=== PATIENT | female | born 1955 | race Caucasian/White ===

== ENCOUNTER → 2019-05-05 | Outpatient (CLI) | payer OTHER ==
[2019-05-05 11:16] LABS: ANION GAP 10 mmol/L (7-16); BUN 23 mg/dL (7-18); CALCIUM 9.1 mg/dL (8.5-10.1); CHLORIDE 101 mmol/L (98-107); CHOLESTEROL 227 mg/dL (<200); CO2 30 mmol/L (21-32); GLUCOSE 124 mg/dL (70-99); HDL CHOLESTEROL 45 mg/dL (>40); LDL CHOLESTEROL 125 mg/dL (<100); POTASSIUM 3.9 mmol/L (3.5-5.1); SERUM ASSESSMENT Clear; SODIUM 141 mmol/L (136-145); TRIGLYCERIDE 289 mg/dL (<150); VLDL 58 mg/dL (<40)
--- NOTE | 2019-05-05 14:58 | EKG ---
[place] [address] ELECTROCARDIOGRAM REPORT Name: DEBBIE ROMERO Room: [facility].#: [id number] Admission: 05/05/19 Attend Phys: Takedria. NICHOLS-LUIS Mckeon Discharge: Date of : 57 Report #: [id number] THIS REPORT FOR: //name// [facility] Test Date: 2019-05-05 Test Time: 11:09:53 Pat Name: DEBBIE NICK Department: Room: Gender: F Planner/Scheduler: : 1955 Requested By: Takedria. Wilkes Order Number: [id number] Avery MD: Marc Hung Measurements Intervals [place] Rate: 68 P: 43 UT: 167 QRS: 51 QRSD: 98 T: 57 QT: 432 QTc: 460 Interpretive Statements Sinus rhythm Atrial premature complexes Abnormal R-wave progression, early transition No previous ECG available for comparison Electronically Signed On 05-05-2019 14:58:03 VALVE REPAIRER by Marc Hung [email or web address] <ELECTRONICALLY SIGNED> By: Marc Hung MD, [facility] 05/05/19 1458 1109 1109 Marc Hung MD, FACC /EPI
[2019-05-06 03:08] LABS: GLYCOHEMOGLOBIN (HGB A1C) 6.8 % (4.8-5.6)
[2019-05-06 21:11] LABS: LDL (DIRECT) CHOL 124 mg/dL (0-99)
== END ==
LOC: M.LAB 10:43
PROVIDERS: Family Medicine
DX: E78.2 Mixed hyperlipidemia (principal); E11.9 Type 2 diabetes mellitus without complications